=== PATIENT | male | born 1945 | race Caucasian/White ===

== ENCOUNTER 2017-05-25 07:18 | Day surgery (SDC) | payer OTHER ==
[~2017-05-25] VITALS: Ht 170.2 cm; Wt 104.5 kg
[2017-05-25] VITALS (8 sets, daily range): BP systolic 124–158; BP diastolic 74–101; PULSE 75–88; RESP 17–20; TEMP 98–98.3; O2SAT 92–96
[2017-05-25] MEDS ORDERED: IPRASOL INH (08:15)
[2017-05-25] MEDS ORDERED: AMLO5TAB2 PO (08:15)
[2017-05-25] MEDS ORDERED: LISI40TA PO (08:15)
[2017-05-25] MEDS ORDERED: SPIR50TA PO (08:15)
[2017-05-25] MEDS ORDERED: VENTAER INH (08:15)
[2017-05-25] MEDS ORDERED: ADVA250A INH (08:15)
[2017-05-25] MEDS ORDERED: CHLORHEXIDINE GLUCONATE 2 % 1 PACK (2 CLOTHS) TOPICAL PRN (08:30)
[2017-05-25] MEDS ORDERED: LACTATED RINGER'S 1000 ML IV PRN (08:30)
[2017-05-25] MEDS ORDERED: POVIDONE IODINE 5% (ANTISEPSIS KIT) 4 APPLICATIONS EACH NARE PRN (08:30)
[2017-05-25] MEDS ORDERED: METOPROLOL TARTRATE 25 MG TAB PO PRN (08:30)
[2017-05-25] MEDS ORDERED: SODIUM CHLORID 0.9% 500 ML IV PRN (08:30)
[2017-05-25] MEDS ORDERED: SODIUM CHLOR 0.9% 1000 ML INJ 1,000 ML IV SCH (08:30)
[2017-05-25] MEDS: CEFAZOLIN INJ 2,000 MG in SODIUM CHLORIDE 0.9% INJ 100 ML IV SCH ×2 (08:58→17:17)
[2017-05-25] MEDS ORDERED: DO NOT ADM ANY ANTICOAGULANT DRUGS PRN (12:19)
[2017-05-25] MEDS ORDERED: HYDROmorphone HCL 2 MG TAB PO PRN (13:00)
[2017-05-25 13:34] LABS: AUTOMATED NEUTROPHIL # 6.1 TH/MM3 (1.8-7.7); BASOPHIL % 0.3 % (0.0-2.0); EOSINOPHIL % 0.5 % (0.0-4.0); HEMATOCRIT 44.5 % (39.0-51.0); HEMOGLOBIN 14.7 GM/DL (13.0-17.0); LYMPH % 7.8 % (9.0-44.0); LYMPHOCYTE # 0.5 TH/MM3 (1.0-4.8); MEAN CORPUSCULAR HEMOGLOBIN 29.4 PG (27.0-34.0); MEAN PLATELET VOLUME 9.1 FL (7.0-11.0); MONO % 4.4 % (0.0-8.0); MONOCYTE # 0.3 TH/MM3 (0-0.9); PLATELET COUNT 125 TH/MM3 (150-450); RED CELL DISTRIBUTION WIDTH 14.4 % (11.6-17.2)
[2017-05-25] MEDS ORDERED: RESP: ALBUTEROL 2.5 MG/IPRATROPIUM 0.5 MG NEB (SCH) NEB (14:00)
[2017-05-25] MEDS ORDERED: LIDOCAINE HCL 1% 20 ML VIAL SQ ONE ×2 (14:16→14:21)
--- NOTE | 2017-05-25 14:38 | EKG ---
Date Performed: 05/25/2017 Time Performed: 07:56:49 PTAGE: 72 years EKG: Sinus rhythm LOW QRS VOLTAGE IN EXTREMITY LEADS BORDERLINE ECG NO PREVIOUS TRACING DOCTOR: Rodger Parisi Interpretating Date/Time 05/25/2017 14:34:10
[2017-05-25 15:11] LABS: BASOPHIL % 0.4 % (0.0-2.0); EOSINOPHIL % 0.2 % (0.0-4.0); HEMATOCRIT 43.5 % (39.0-51.0); HEMOGLOBIN 14.6 GM/DL (13.0-17.0); LYMPH % 5.1 % (9.0-44.0); LYMPHOCYTE # 0.5 TH/MM3 (1.0-4.8); MEAN CELL VOLUME 88.3 FL (80.0-100.0); MEAN CORPUSCULAR HEMOGLOBIN 29.6 PG (27.0-34.0); MEAN CORPUSCULAR HGB CONC 33.6 % (32.0-36.0); MEAN PLATELET VOLUME 9.2 FL (7.0-11.0); MONO % 4.2 % (0.0-8.0); MONOCYTE # 0.4 TH/MM3 (0-0.9); NEUT % 90.1 % (16.0-70.0); PLATELET COUNT 125 TH/MM3 (150-450); RED BLOOD COUNT 4.93 MIL/MM3 (4.50-5.90); RED CELL DISTRIBUTION WIDTH 14.4 % (11.6-17.2); WHITE BLOOD COUNT 8.9 TH/MM3 (4.0-11.0)
--- NOTE | 2017-05-25 15:42 | RADRPT ---
EXAM DATE/TIME: 05/25/2017 10:16 INDICATIONS : Left renal mass. Anesthesia and pain control was provided by the Anesthesia department. Prophylactic antibiotics were administered with appropriate pre-procedure timing. Vancomycin within 2 hrs of procedure, Ancef (or alternative) within 1 hr of procedure start. Intra-procedural antibiotics were given as prescribed above. DEVICE(S): 1.) 16 gauge Cryoablation probe x4 MEDICAL HISTORY : Chronic obstructive pulmonary disease. SURGICAL HISTORY : Hemorrhoidectomy. ENCOUNTER: Initial ACUITY: 1 day PAIN SCORE: 0/10 LOCATION: Left renal PROCEDURE : 1. CT guided cryoablation. Under sterile conditions and using aseptic technique with CT guidance the mass was localized and sati sfactory approach was taken to access the lesion. Using automated exposure control and adjustment of the mA and/or kV according to patient size, radiation dose was kept as low as reasonably achievable to obtain optimal diagnostic quality images. DICOM format image data is available electronically for review and comparison. Cuurio Cryoprobes were employed using percutaneous technique employing the prescribed probes. A freeze-thaw, freeze-thaw technique was employed and serial imaging demonstrated an ice ball encomp assing the entire lesion. Post procedure images demonstrate expected postoperative changes without e vidence of hematoma. CONCLUSION: Uncomplicated cryoablation as above. Jesse Ayon MD on May 25, 2017 at 15:37 Board Certified Radiologist. This report was verified electronically.
--- NOTE | 2017-05-25 15:42 | RADRPT ---
EXAM DATE/TIME: 05/25/2017 10:16 [facility] COMPARISON: No previous studies available for comparison. INDICATIONS : Left renal mass. BIOPSY SITE: Left renal DEVICE(S): 1.) 18 gauge Temno core biopsy needle MEDICAL HISTORY : Chronic obstructive pulmonary disease. SURGICAL HISTORY : Hemorrhoidectomy. ENCOUNTER: Initial ACUITY: 1 day PAIN SCORE: 0/10 LOCATION: Left renal A total of one core specimen(s) were obtained and sent to the laboratory for pathologic evaluation. PROCEDURE: 1. CT guided renal biopsy. Prior to the procedure informed consent was obtained. Any appropriate prior imaging studies were rev iewed. Using automated exposure control and adjustment of the mA and/or kV according to patient size, radiat ion dose was kept as low as reasonably achievable to obtain optimal diagnostic quality images. DICOM format image data is available electronically for review and comparison. The site was prepped in a sterile fashion. Full sterile technique was used, including cap, mask, mayela rile gloves and gown and a large sterile sheet. Hand hygiene and 2% chlorhexidine and/or betadine/al cohol prep was utilized per protocol for cutaneous antisepsis. The skin and subcutaneous tissues wer e infiltrated with local anesthetic solution. With CT guidance the previously identified target was localized. Biopsy was performed using the presc ribed needle as above. Adequate hemostasis was obtained with compression at the puncture site. Follow-up CT scan reveals no hemorrhage. The patient tolerated the procedure well and there were no complications. The patient was returned to the Radiology Outpatient Unit in stable condition. CONCLUSION: Uncomplicated CT guided biopsy. Jesse Ayon MD on May 25, 2017 at 15:40 Board Certified Radiologist. This report was verified electronically.
== END 2017-05-25 18:06 | disposition home or self-care (01) ==
LOC: HROP 07:18 → HRIP 07:19 → HROP 18:06
PROVIDERS: ATTEND Radiology Body Imaging
DX: C64.2 Malignant neoplasm of left kidney, except renal pelvis (principal); N28.89 Other specified disorders of kidney and ureter; J44.9 Chronic obstructive pulmonary disease, unspecified; R94.31 Abnormal electrocardiogram [ECG] [EKG]; I10 Essential (primary) hypertension
CPT/HCPCS: 50200; 50593; 77012; 77013; 82948; 85025; 88305; 88342; 93005; C2618; J0690; J3010; J7030; 88341

== ENCOUNTER 2017-06-02 13:43 | Day surgery (SDC) | payer OTHER ==
[~2017-06-02 13:43] MED LIST: ADVA250A INH; AMLO5TAB2 PO; IPRASOL INH; LISI40TA PO; SPIR50TA PO; VENTAER INH
== END 2017-06-02 14:10 | disposition home or self-care (01) ==
LOC: HROP 13:43 → HRIP 13:46 → HROP 14:10
PROVIDERS: ATTEND Radiology Body Imaging
DX: C64.2 Malignant neoplasm of left kidney, except renal pelvis (principal)